=== PATIENT | male | born 1965 ===

== ENCOUNTER 2023-04-29 06:00 | Day surgery (SDC) | payer OTHER ==
[2023-04-08 08:38] LABS: URINE APPEARANCE Clear; URINE BILIRRUBIN Negative (NEGATIVE); URINE BLOOD Negative; URINE COLOR Yellow; URINE GLUCOSE Negative (NEGATIVE); URINE LEUKOCYTE Negative; URINE NITRATE Negative; URINE PROTEIN Negative (NEGATIVE); URINE UROBILINOGEN 0.2 E.U./dl
[2023-04-08 08:39] LABS: URINE WBC 3.8 uL (0.0-23.2)
[2023-04-08 08:43] LABS: HEMATOCRIT 45.3 % (39.0-48.0); HEMOGLOBIN 15.7 g/dL (13-16.00); MEAN CELL VOLUME 87.9 fL (80.0-100.00); MEAN CORPUSCULAR HEMOGLOBIN 30.4 pg (27.00-32.0); MEAN CORPUSCULAR HGB CONC 34.6 g/dl (32.0-36.0); PLATELET COUNT 198 K/uL (150-450); RED BLOOD COUNT 5.15 M/uL (4.00-6.00); RED CELL DISTRIBUTION WIDTH 14.3 % (11.5-14.5)
[2023-04-08 08:48] LABS: URINE BACTERIA 2.5 uL (0.0-1933); URINE RBC 0.4 uL (0.0-20.8)
[2023-04-08 09:12] LABS: INR 0.98; PARTIAL THROMBOPLASTIN TIME 32.8 SECONDS (22.0-34.0); PROTHROMBIN TIME 10.3 SECONDS (9.0-11.5)
[2023-04-08 09:19] LABS: BILIRUBIN TOTAL 0.45 mg/dL (0.3-1.2); CALCIUM 9.3 mg/dL (8.5-10.1); CREATININE SERUM 0.98 mg/dL (0.70-1.30); GFR 79.41; GLOBULINA 3.9 G/DL (2.4-3.5); POTASSIUM 5.71 mEq/L (3.5-5.1); TOTAL PROTEIN 7.9 gm/dL (6.4-8.2)
[~2023-04-29] VITALS: Ht 177.8 cm; Wt 101.6 kg
[~2023-04-29 06:00] MED LIST: CIALIS5 MG PO; CRESTOR40 MG PO; DIOVAN40 MG PO; GLIMEPIRIDE2 MG; IMURAN50 MG PO; LYRICA300 MG PO; METFORMIN HCL1000 M2 PO; PEPCID40 MG PO; PERCOCET 10-321 EACH PO; TRULICITY0.75 MG/0.; ZETIA10 MG PO
[2023-04-29] MEDS ORDERED: CEFAZOLIN SODIUM 1,000 MG VIAL ONE (07:43)
[2023-04-29] MEDS ORDERED: POVIDONE-IODINE 118 ML BOTT TOP ONE ×2 (07:48→09:00)
[2023-04-29] MEDS ORDERED: POVIDONE-IODINE SCRUB 118 ML BOTT TOP ONE ×2 (07:48→09:00)
[2023-04-29] MEDS ORDERED: LIDOCAINE HCL/EPINEPHRINE 20 ML VIAL IJ ONE (07:48)
[2023-04-29] MEDS ORDERED: EPINEPHRINE HCL/PF 1 MG/ML AMPUL ONE (07:49)
[2023-04-29] MEDS ORDERED: NEOMYCIN/POLYMYXIN B/HYDROCORT 20 DR/ML BOTTLE OT ONE ×2 (07:49→09:15)
[2023-04-29] MEDS ORDERED: BACITRACIN 28.35 GM OINT.TUBE TOP ONE (08:40)
[2023-04-29] MEDS ORDERED: EPINEPHRINE HCL/PF 1 MG/ML AMPUL IJ ONE (09:00)
[2023-04-29] MEDS ORDERED: LIDOCAINE HCL 1% 200MG/20ML VIAL IJ ONE (09:15)
[2023-04-29] MEDS ORDERED: NEOMYCIN/BACITRACIN/POLYMYXINB 14 G TUBE TOP ONE (09:15)
[2023-04-29] MEDS ORDERED: CEFAZOLIN SODIUM 1,000 MG VIAL IV ONE (09:15)
[2023-04-29] MEDS ORDERED: PROMETHAZINE HCL 25 MG/ML AMPUL IM PRN (12:45)
[2023-04-29] MEDS ORDERED: MEPERIDINE HCL/PF 50 MG/ML VIAL IM PRN (12:45)
== END 2023-04-29 14:50 | disposition home or self-care (01) ==
LOC: CIR.AMB 06:00
PROVIDERS: ATTEND Otolaryngology Otology & Neurotology
DX: H71.92 Unspecified cholesteatoma, left ear (principal); H90.2 Conductive hearing loss, unspecified; Z88.6 Allergy status to analgesic agent

== ENCOUNTER → 2023-04-29 06:10 | Outpatient (CLI) | payer OTHER | END | disposition home or self-care (01) | LOC: LAB 06:10 | PROVIDERS: ATTEND Internal Medicine | DX: E16.2 Hypoglycemia, unspecified (principal) ==